=== PATIENT | male | born 1955 | race Caucasian/White ===

== ENCOUNTER 2024-08-27 09:49 | Emergency (ER) | payer MEDICARE, MEDICAID, SELFPAY ==
--- NOTE | ~2024-08-27 | XR_ITS ---
EXAMINATION: XR CHEST CLINICAL INFORMATION: CP COMPARISON: None available. TECHNIQUE: 2 views of the chest were obtained. FINDINGS: Mildly elevated right hemidiaphragm. The cardiac, hilar, and mediastinal contours are normal. Prominent epicardial fat pad. Mildly low lung volumes. On the lateral projection there is increased opacity projecting over the right lung base, possible pneumonia. This is not well seen on the AP projection. There is no pneumothorax or pleural effusion. Surgical screw seen abutting the right inferior glenoid. Degenerative changes of the spine and left greater than right shoulder joints. No soft tissue abnormalities. XR/XR chest 2V IMPRESSION: 1. Increased opacity right lower lobe only seen on lateral projection. Pneumonia is a possibility in the appropriate clinical setting. Unfortunately no priors for comparison. 2. Left lung appears clear. No effusions. Electronically signed by: Robert Clark MD 08/27/2024 10:38 AM EDT
--- NOTE | ~2024-08-27 | CT_ITS ---
EXAMINATION: CT LUMBAR SPINE WITHOUT CONTRAST CLINICAL INFORMATION: Fall, back pain. COMPARISON: None available. TECHNIQUE: Spiral CT imaging of the lumbar spine performed in axial plane without contrast. Multiplanar reformatted images were constructed from the axial data set. This CT examination was performed using dose optimization techniques as appropriate, variously including the following: *Automated exposure control *Adjustment of mA and/or kV according to patient size (this includes techniques or standardized protocols for targeted exams where dose is matched to indication/reason for exam; i.e. extremities or head) *Use of iterative reconstruction technique FINDINGS: There is no scoliosis. There is a normal lordosis. There is no malalignment or subluxation. There is a mild superior endplate compression deformity of T12, chronic in appearance. There is no additional compression fracture, acute fracture, or suspicious bone lesion. There is a hemangioma in the left aspect of L3. Mild multilevel disc degeneration present. Normal facet alignment bilaterally. Posterior elements intact. Mild multilevel degenerative facet changes most notable L3-S1. No large disc herniation or evidence of central canal stenosis. The sacrum is intact. The SI joints appear normal. Mild aortic vascular calcifications without aneurysm. Imaged retroperitoneal soft tissues appear normal. CT/CT lumbar spine wo IV con IMPRESSION: 1. No acute finding of the lumbar spine. 2. There is a chronic appearing mild superior endplate T12 compression fracture. 3. There is mild lumbar spondylosis. Electronically signed by: Robert Clark MD 08/27/2024 02:53 PM EDT
--- NOTE | ~2024-08-27 | CT_ITS ---
EXAMINATION: CT CHEST WITHOUT CONTRAST CT THORACIC SPINE WITHOUT CONTRAST. CLINICAL INFORMATION: Fall, back pain. Chest pain. COMPARISON: None available. Correlation with chest x-ray earlier same day. TECHNIQUE: Multidetector volumetric CT imaging of the chest and thoracic spine was performed without contrast. Axial lung MIP volume rendering provided. Sagittal and coronal reformatted images were obtained. This CT examination was performed using dose optimization techniques as appropriate, variously including the following: *Automated exposure control *Adjustment of mA and/or kV according to patient size (this includes techniques or standardized protocols for targeted exams where dose is matched to indication/reason for exam; i.e. extremities or head) *Use of iterative reconstruction technique FINDINGS: LUNGS: The lungs demonstrate diffuse small airway thickening most notable in the mid and lower lungs bilaterally. There are groundglass changes in both lower lobes, possibly hypoventilatory/atelectasis. Other etiologies not excluded. There is no effusion or pneumothorax. There is no suspicious pulmonary nodule. MEDIASTINUM: There is mild cardiomegaly. There is no pericardial effusion. Mildly patulous esophagus. Aorta and main pulmonary artery appear normal. Thyroid appears normal. No adenopathy or mass. There is no pneumothorax. CORONARY ARTERY CALCIFICATION: Mild, most notable in the LAD. PLEURA: There is no pleural effusion. No pleural mass or thickening. AXILLA/CHEST WALL: No lymphadenopathy. Mild male gynecomastia bilaterally. UPPER ABDOMEN: Fatty infiltration of the liver which is somewhat geographic. Remainder the imaged upper abdominal contents are normal. OSSEOUS STRUCTURES/THORACIC SPINE: There is a minimal levoconvex scoliosis, possibly positional. There is a normal thoracic kyphosis. There is a mild superior endplate compression deformity of T5, T9, T10, T11, and T12. The T5 and T9 fractures are chronic. There is mild perivertebral stranding surrounding T10, and T11, suggesting possible acute fractures. The T12 fracture appears chronic. There is minimal retropulsion of the superior endplate of T12 into the central canal without central canal narrowing. No additional retropulsion of bone. No fractures of the posterior elements. No evidence of central canal stenosis. There is a retracted screw within an osseous fragment anterior to the inferior right glenoid, with a screw tract within the inferior glenoid itself. This may be a chronic hardware failure. Moderate degenerative changes left shoulder joint and mild changes right shoulder joint. There is an acute fracture with mild displacement of the right lateral eighth and ninth ribs. There are no left rib fractures. Sternum is intact. CT/CT thoracic spine wo IV con IMPRESSION: 1. Acute fractures of the right lateral 8th and 9th ribs. 2. Age-indeterminate, possibly acute mild superior endplate compression fractures of T10 and T11. 3. Chronic superior endplate compression deformities of T5, T9, and T12. 4. There is a retracted displaced screw anterior to the right inferior glenoid with an empty screw tract in the inferior glenoid itself. Hardware failure suspected. 5. Lungs demonstrate diffuse mild small airway thickening, most notable in the mid and lower lungs bilaterally. There are associated lower lobe groundglass changes, possibly hypoventilatory or infectious/inflammatory. No effusions. No pneumothorax. 6. There is mild cardiomegaly. 7. There is mild fatty infiltration of the liver. Electronically signed by: Robert Clark MD 08/27/2024 03:14 PM EDT
--- NOTE | 2024-08-27 09:53 | ECG_ITS ---
Test Reason : CHEST PAIN Blood Pressure : */* mmHG Vent. Rate : 77 BPM Atrial Rate : 77 BPM P-R Int : 182 ms QRS Dur : 78 ms QT Int : 350 ms P-R-T Axes : 68 13 37 degrees QTcB Int : 396 ms Normal sinus rhythm Normal ECG No previous ECGs available Referred By: Generic ED Physician Electronically Signed By: PÉREZ LAMBERT
[2024-08-27 10:21] LABS: MANUAL DIFF FLAG NO
[2024-08-27 10:23] LABS: Basophils Absolute Auto 0.1 X10*3/uL (0.0-0.2); Basophils Percent Auto 0.5 % (0-2); Eosinophils Absolute Auto 0.2 X10*3/uL (0.0-0.4); Eosinophils Percent Auto 2.4 % (0-4); Hemoglobin 16.2 g/dl (14.0-18.0); Imm Gran Abs Auto 0.02 X10*3/uL (0.00-0.03); Imm Gran Pct Auto 0.2 % (0.0-0.4); Lymphocytes Absolute Auto 2.5 X10*3/uL (1.2-4.9); Lymphocytes Percent Auto 24.9 % (20-40); Mean Corpuscular HGB Conc 33.8 g/dl (31.0-36.0); Mean Corpuscular Hemoglobin 29.6 pg (27.0-33.0); Mean Corpuscular Volume 87.8 fL (80.0-98.0); Mean Platelet Volume 9.9 fL (9.4-12.4); Monocytes Absolute Auto 0.9 X10*3/uL (0.1-1.2); Monocytes Percent Auto 9.3 % (2-11); Neutrophils Absolute Auto 6.3 x10*3/uL (2.0-8.3); Neutrophils Percent Auto 62.7 % (45-73); Platelet Count 504 X10*3/uL (160-400); Red Blood Count 5.47 X10*6/uL (4.60-5.80); Red Cell Distribution Width 13.6 % (11.0-16.0); White Blood Count 10.1 X10*3/uL (4.8-10.8)
[2024-08-27 10:28] VITALS: BP 155/68; PULSE 68; RESP 18; TEMP 36.1; BMI 24.8
[2024-08-27 10:29] LABS: Prothrombin Time 11.3 SEC (10.9-12.4)
[2024-08-27 10:31] VITALS: BP 155/68; PULSE 68; RESP 18; TEMP 36.1
[2024-08-27 10:31] LABS: Partial Thromboplastin Time 30.8 SEC (26.0-36.8)
[2024-08-27 10:38] LABS: Anion Gap 13 (12-20); Blood Urea Nitrogen 12 mg/dL (9-16); Calcium 9.8 mg/dL (8.4-10.2); Carbon Dioxide 28 mmol/L (22-29); Chloride 107 mmol/L (96-108); Creatinine Clr Calc Pharmacy 55.7; Estimated Glomerular Filt Rate > 60; Glucose Random 106 mg/dL (60-115); Magnesium 2.1 mg/dL (1.6-2.6); Potassium 4.6 mmol/L (3.3-5.1); Sodium 143 mmol/L (135-145)
[2024-08-27 10:44] LABS: B Type Natriuretic Peptide < 10 pg/mL (<100)
[2024-08-27 11:28] LABS: Influenza A PCR NEGATIVE (Negative); Influenza B PCR NEGATIVE (Negative); Resp Syncy Virus RNA Qual PCR NEGATIVE (Negative); SARS COV2 PCR INHOUSE NEGATIVE (Negative)
[2024-08-27] MEDS: Ketorolac Tromethamine 30 MG/ML VIAL IM (11:59)
--- OUTSIDE RECORDS SUMMARY | 2024-08-27 13:23 | XMS_ITS | Clinical Summary ---
Author Organization [facility] Address [address] [place] [address] Phone Care Team Providers Care Human Resources Psychologist Name Role Phone Physician, No Pcp Primary Care Provider Unavaila ble Allergies No known active allergies Encounters Date Type Department Care Team Description 08/26/2024 5:59 PM EDT - 08/26/2024 10:38 PM EDT Emergency [facility] Emergency [address] [place] [address] Discharge Disposition: Home or Self Care from Last 3 Months Medical History Medical History Date Comments Diabetes mellitus ([facility]) Seizures ([facility]) Social History Tobacco Use Types Packs/Day Years Used Date Smoking Tobacco: Never Assessed Sex and Gender Information Value Date Recorded Sex Assigned at Not on file Legal Sex Male 6:14 PM EST Gender Identity Not on file Sexual Orientation Not on file Obstetrics History Last Filed Vital Signs Vital Sign Reading Time Taken Comments Blood Pressure 150/100 08/26/2024 8:38 PM EDT Pulse 72 08/26/2024 8:38 PM EDT Temperature 36.7 ??C (98.1 ??F) 08/26/2024 8:38 PM ED T Respiratory Rate 16 08/26/2024 8:38 PM EDT Oxygen Saturation 96% 08/26/2024 8:38 PM EDT Inhaled Oxygen Concentration - - Weight 63.5 kg (140 lb) 08/26/2024 6:04 PM EDT Height 160 cm (5' 3 ) 08/26/2024 6:04 PM EDT Body Mass Index 24.8 08/26/2024 6:04 PM EDT Plan of Treatment Health Maintenance Due Date Last Done Comments RSV Immunization Patients 60+ Years Old (1 - Risk 60-74 years 1-dose series) 2016 Abdominal Aortic Aneurysm (AAA) Screen 05/19/2022 Colorectal Cancer Screening: Colonoscopy 05/19/2022 Falls Risk Assessment 05/19/2022 Medicare Annual Wellness Visit 05/19/2022 Social Influencers of Health Screening 05/19/2022 COVID-19 Vaccine (3 - 2023- season) 2024 11/02/2020, 10/05/2020 Influenza Vaccine (#1) 2024 , 09/12/2022, 05/19/2021, Additional history exists Depression Screening 12/08/2024 12/09/2023 Hypertension/CHF/CAD Annual BMP Blood Test 12/08/2024 12/09/2023 Pneumococcal Vaccine: 50+ Years (3 of 3 - PCV20 or PCV21) 11/08/2026 11/08/2021, 08/16/2015 Cholesterol Screening (Lipid Panel) 12/08/2028 12/09/2023, 12/09/2023 DTaP,Tdap,and Td Vaccines (5 - Td or Tdap) 11/02/2031 11/01/2021, 10/13/2019, 04/14/2018, Additional history exists Hepatitis C Screening Completed 01/05/2021 Zoster Vaccines Completed 06/22/2024, 08/2020, 07/10/2019 HIB Vaccines Aged Out No longer eligi ble based on patient's age to complete this topic HPV Vaccines Aged Out No longer eligi ble based on patient's age to complete this topic Hepatitis A Vaccines Aged Out No long er eligible based on patient's age to complete this topic Hepatitis B Vaccines Aged Out No long er eligible based on patient's age to complete this topic IPV Vaccines Aged Out No longer eligi ble based on patient's age to complete this topic MMR Vaccines Aged Out No longer eligi ble based on patient's age to complete this topic Meningococcal ACWY Vaccine Aged Out N o longer eligible based on patient's age to complete this topic Meningococcal B Vacine Aged Out No lo nger eligible based on patient's age to complete this topic RSV Immunization Patients Under 20 months Aged Out No longer eligible based on patient's age to complete this topic Varicella Vaccines Aged Out No longer eligible based on patient's age to complete this topic Procedures Procedure Name Priority Date/Time Associated Diagnosis Comments XR RIBS W CHEST 3+ VIEWS RIGHT STAT 08/26/2024 6:32 PM EDT from Last 3 Months Results * XR Ribs w Chest 3+ Views Right (08/26/2024 6:32 PM EDT) Anatomical Region Laterality Modality Body Right Radiographic Francesca ging 08/27/2024 8:08 AM EDT Impressions 08/27/2024 8:11 AM EDT Acute minimally displaced fracture of the right anterolateral 8th rib. -------- FINAL REPORT -------- Dictated By: Alex Mahoney Dictated Date: 08/27/2024 08:08 ET Assigned Physician: Alex Mahoney Reviewed and Electronically Signed By: Alex Mahoney Signed Date: 08/27/2024 08:11 ET Workstation ID: [id number] Transcribed By: Self Edit Transcribed Date: 08/27/2024 08:08 ET Narrative 08/27/2024 8:11 AM EDT PROCEDURE: Chest radiograph and dedicated views of the right ribs. HISTORY: pain. COMPARISON: 08/08/2022. FINDINGS: Lungs are clear. ??No pneumothorax, pleural effusion, or pulmonary edema. ??Normal cardiomediastinal contours. ??There is an acute minimally displaced fracture of the right anterolateral 8th rib. ??Bony irregularity and an orthopedic screw along the inferior right glenoid. Procedure Note Alex Mahoney MD - 08/27/2024 PROCEDURE: Chest radiograph and dedicated views of the right ribs. HISTORY: pain. COMPARISON: 08/08/2022. FINDINGS: Lungs are clear. No pneumothorax, pleural effusion, or pulmonary edema.Normal cardiomediastinal contours. There is an acute minimally displacedfracture of the right anterolateral 8th rib. Bony irregularity and anorthopedic screw along the inferior right glenoid. IMPRESSION: Acute minimally displaced fracture of the right anterolateral 8th rib. -------- FINAL REPORT -------- Dictated By: Alxe Mahoney Dictated Date: 08/27/2024 08:08 ET Assigned Physician: Alex Mahoney Reviewed and Electronically Signed By: Alex Mahoney Signed Date: 08/27/2024 08:11 ET Workstation ID: [id number] Transcribed By: Self Edit Transcribed Date: 08/27/2024 08:08 ET us Marcos Norman DO IMG XR PROCEDURES Final Result from Last 3 Months Insurance [place] MEDICARE ADVANTAGE Advance Directives Documents on File Type Date Recorded Patient Emt/Dispatcher Expl anation Health Care Decision (hx) 08/19/2019 AD CARRERA DIRECTIVE Health Care Decision (hx) 08/19/2019 AD CARRERA DIRECTIVE Health Care Decision (hx) 08/19/2019 AD CARRERA DIRECTIVE Health Care Decision (hx) 08/19/2019 AD CARRERA DIRECTIVE Health Care Decision (hx) 08/19/2019 AD CARRERA DIRECTIVE Health Care Decision (hx) 08/19/2019 AD CARRERA DIRECTIVE Health Care Decision (hx) 08/19/2019 AD CARRERA DIRECTIVE Health Care Decision (hx) 08/19/2019 AD CARRERA DIRECTIVE Health Care Decision (hx) 08/19/2019 AD CARRERA DIRECTIVE Health Care Decision (hx) 08/19/2019 AD CARRERA DIRECTIVE Health Care Decision (hx) 08/19/2019 AD CARRERA DIRECTIVE Health Care Decision (hx) 08/19/2019 AD CARRERA DIRECTIVE Health Care Decision (hx) 08/19/2019 AD CARRERA DIRECTIVE Health Care Decision (hx) 08/19/2019 AD CARRERA DIRECTIVE Health Care Decision (hx) 08/19/2019 AD CARRERA DIRECTIVE Health Care Decision (hx) 08/19/2019 AD CARRERA DIRECTIVE Health Care Decision (hx) 08/19/2019 AD CARRERA DIRECTIVE Health Care Decision (hx) 08/19/2019 AD CARRERA DIRECTIVE Health Care Decision (hx) 08/19/2019 AD CARRERA DIRECTIVE Health Care Decision (hx) 08/19/2019 AD CARRERA DIRECTIVE Health Care Decision (hx) 08/19/2019 AD CARRERA DIRECTIVE Health Care Decision (hx) 08/19/2019 AD CARRERA DIRECTIVE Health Care Decision (hx) 08/19/2019 AD CARRERA DIRECTIVE Health Care Decision (hx) 08/19/2019 AD CARRERA DIRECTIVE Health Care Decision (hx) 08/19/2019 AD CARRERA DIRECTIVE Health Care Decision (hx) 08/19/2019 AD CARRERA DIRECTIVE Health Care Decision (hx) 08/19/2019 AD CARRERA DIRECTIVE Health Care Decision (hx) 08/19/2019 AD CARRERA DIRECTIVE Health Care Decision (hx) 08/19/2019 AD CARRERA DIRECTIVE Health Care Decision (hx) 08/19/2019 AD CARRERA DIRECTIVE Health Care Decision (hx) 08/19/2019 AD CARRERA DIRECTIVE Health Care Decision (hx) 08/19/2019 AD CARRERA DIRECTIVE Health Care Decision (hx) 08/19/2019 AD CARRERA DIRECTIVE Health Care Decision (hx) 08/19/2019 AD CARRERA DIRECTIVE Health Care Decision (hx) 08/19/2019 AD CARRERA DIRECTIVE Health Care Decision (hx) 08/19/2019 AD CARRERA DIRECTIVE Health Care Decision (hx) 08/19/2019 AD CARRERA DIRECTIVE Health Care Decision (hx) 08/19/2019 AD CARRERA DIRECTIVE Health Care Decision (hx) 08/19/2019 AD CARRERA DIRECTIVE Health Care Decision (hx) 08/19/2019 AD CARRERA DIRECTIVE Health Care Decision (hx) 08/19/2019 AD CARRREA DIRECTIVE Health Care Decision (hx) 08/19/2019 AD CARRERA DIRECTIVE Health Care Decision (hx) 08/19/2019 AD CARRERA DIRECTIVE Health Care Decision (hx) 08/19/2019 AD CARRERA DIRECTIVE Health Care Decision (hx) 08/19/2019 AD CARRERA DIRECTIVE Health Care Decision (hx) 08/19/2019 AD CARRERA DIRECTIVE Health Care Decision (hx) 08/19/2019 AD CARRERA DIRECTIVE Care Teams Human Resources Psychologist Relationship Specialty Start Date End Date Physician, No Pcp PCP - General 08/26/24
--- OUTSIDE RECORDS SUMMARY | 2024-08-27 13:24 | XMS_ITS | Encounter Summary ---
Author Organization [facility] Address [address] [place] [address] Care Team Providers Care Webbing Tacker Name Role Phone Tamiko Marin PA-C Primary Care Provider [phone] Reason for Visit * Reason Comments Correspondence Encounter Details Date Type Department Care Team ([facility] st Contact Info) Description 08/04/2024 Interim Notes [facility] [address] [place] [phone] [facility] [address] [place], [place] [id number] Social History Tobacco Use Types Packs/Day Years Used Date Smoking Tobacco: Former Cigarettes Passive Smoke Exposure: Never Smokeless Tobacco: Former Alcohol Use Standard Drinks/Week Comments No 0 (1 standard drink = 0.6 oz pur e alcohol) never Social Connections Answer Date Recorded Connectedness 1 12/09/2023 Financial Resource Strain Answer Date R ecorded Financial Resource Strain 1 2023 Stress Answer Date Recorded Stress 1 12/09/2023 Physical Activity Answer Date Recorded Physical Activity 0 02/04/2019 Food Insecurity Answer Date Recorded Food 1 12/09/2023 Transportation Needs Answer Date Record ed Transportation 1 12/09/2023 Housing Stability Answer Date Recorded Housing 1 12/09/2023 Safety and Environment Answer Date Amador rded Safety 1 12/09/2023 Utilities Answer Date Recorded Utilities 1 12/09/2023 Employment Answer Date Recorded Stress 0 12/09/2023 Sex and Gender Information Value Date Recorded Sex Assigned at Male 05/13/2017 2:28 PM PST Legal Sex Male 11:36 AM PDT Gender Identity Male 05/13/2017 2:28 PM PST Sexual Orientation Straight 05/13/2017 2: 28 PM PST Occupation Industry Job Start Date Job End Date disabled Not on file Not on file Not on file documented as of this encounter Progress Notes * Krissy Dominguez CMA - 08/04/2024 3:39 PM EST Letter made by provider Called patient to inform them ready for lease picker. Jessy green documented in this encounter Plan of Treatment Upcoming Encounters Date Type Department Care Team (Late st Contact Info) Description 09/23/2024 1:40 PM EDT Office Visit [facility] [place] [phone] Raleigh Rubio DDS [address] [place] [phone] documented as of this encounter Visit Diagnoses Not on filedocumented in this encounter Additional Health Concerns Assessment Noted Time PHQ-9 Depression Total Score: 0 12/09/19 24 1:35 PM PDT documented as of this encounter Care Teams Webbing Tacker Relationship Specialty Start Date End Date Tamiko Marin PA-C [address] [place] [id number] PCP - General Primary Care 06/04/23 documented as of this encounter
--- OUTSIDE RECORDS SUMMARY | 2024-08-27 13:24 | XMS_ITS | Encounter Summary ---
Author Organization [facility] Address [address] [place] [address] Care Team Providers Care Bearing Machine Operator Name Role Phone Tamiko Marin PA-C Primary Care Provider [phone]- [phone] Reason for Referral * Home Health Services (Routine) - Closed Specialty Diagnoses / Procedures Referred By Yessenia darnell Referred To Contact Diagnoses Adult behavior problem Seizure (HCC-CMS) Cerebrovascular disease Unsteady gait when walking Milady Laura MA [address] [place] [address] Phone: tel: fax: OTHER Referral ID Status Reason Start Date Expiration Date V isits Requested Visits Authorized [id number] Closed Specialty Services Required 07/19/2022 07/19/2023 1 1 Comments Pt wants to tranfers to [facility] care solutions, Encounter Details Date Type Department Care Team (Late st Contact Info) Description 07/19/2022 Interim Notes [facility] [address] [phone] Milady Laura [address] [address] Adult behavior problem (Primary Dx); Seizure (HCC-CMS); Cerebrovascular disease; Unsteady gait when walking Social History Tobacco Use Types Packs/Day Years Used Date Smoking Tobacco: Former Cigarettes Smokeless Tobacco: Former Alcohol Use Standard Drinks/Week Comments No 0 (1 standard drink = 0.6 oz pur e alcohol) never Social Connections Answer Date Recorded Social Connections and Isolation 0 02/04/2019 Financial Resource Strain Answer Date R ecorded Financial Resource Strain 0 2018 Stress Answer Date Recorded Stress 0 02/04/2019 Physical Activity Answer Date Recorded Physical Activity 0 02/04/2019 Food Insecurity Answer Date Recorded Food 0 02/04/2019 Transportation Needs Answer Date Record ed Transportation 0 02/04/2019 Housing Stability Answer Date Recorded Housing 0 02/04/2019 Safety and Environment Answer Date Amador rded Safety 0 02/04/2019 Utilities Answer Date Recorded Utilities 0 02/04/2019 Employment Answer Date Recorded Employment 0 02/04/2019 Sex and Gender Information Value Date Recorded Sex Assigned at Male 05/13/2017 2:28 PM PST Legal Sex Male 11:36 AM PDT Gender Identity Male 05/13/2017 2:28 PM PST Sexual Orientation Straight 05/13/2017 2: 28 PM PST Occupation Industry Job Start Date Job End Date disabled Not on file Not on file Not on file documented as of this encounter Plan of Treatment Upcoming Encounters Date Type Department Care Team (Late st Contact Info) Description 09/23/2024 1:40 PM EDT Office Visit [facility] [address] [place] [address] Raleigh Rubio DDS [address] [place] [address] Scheduled Referrals Name Type Priority Associated Diagnoses Orde r Schedule REFERRAL TO HOME HEALTH CARE Referral Routine Adult behavior problem Seizure (HCC-CMS) Cerebrovascular disease Unsteady gait when walking Ordered: 07/19/2022 documented as of this encounter Visit Diagnoses Diagnosis Adult behavior problem- Primary Unspecified disturbance of conduct Seizure (HCC-CMS) Other convulsions Cerebrovascular disease Cerebrovascular disease, unspecified Unsteady gait when walking documented in this encounter Additional Health Concerns Assessment Noted Time PHQ-9 Depression Total Score: 2 09/08/19 22 9:16 AM PDT documented as of this encounter Care Teams Bearing Machine Operator Relationship Specialty Start Date End Date Tamiko Marin PA-C [facility] [place] [address] PCP - General Primary Care 06/04/23 documented as of this encounter
--- OUTSIDE RECORDS SUMMARY | 2024-08-27 13:24 | XMS_ITS | Encounter Summary ---
Author Organization [facility] Address [address] [place] [address] Care Team Providers Care Braille Transcriber Name Role Phone Physician, No Pcp Primary Care Provider Unavaila ble Reason for Visit * Reason Comments Fall Encounter Details Date Type Department Care Team (Late st Contact Info) Description 08/26/2024 5:59 PM EDT - 08/26/2024 10:38 PM EDT Emergency [facility] Emergency [address] [place] [phone] Discharge Disposition: Home or Self Care Social History Tobacco Use Types Packs/Day Years Used Date Smoking Tobacco: Never Assessed Sex and Gender Information Value Date Recorded Sex Assigned at Not on file Legal Sex Male 6:14 PM EST Gender Identity Not on file Sexual Orientation Not on file documented as of this encounter Last Filed Vital Signs Vital Sign Reading [...] Mass Index 24.8 08/26/2024 6:04 PM EDT documented in this encounter Discharge Disposition Disposition Code Departure Means Destination Comment s Home or Self Care [facility]. Pt advised to stay as x ray done . Pt refused to stay . Advised to return with cocnerns documented in this encounter Progress Notes * Adriane Ocampo RN - 08/26/2024 10:32 PM EDT Pts son to the desk and reported he was taking his [facility] to the [facility] as he has been waitingtoo long. Pt advised to stay as his x ray was done here and when he goes in it just needs to be seen by the provider and pt is next to be seen. Pt and son refused to stay * Yeimi Carter RN - 08/26/2024 6:03 PM EDT Pt sts son dog jumped on him and pt fell back landed on rt ribs on counter today. Denies loc. C/o pain rt rib area documented in this encounter Plan of Treatment Not on file documented as of this encounter Procedures Procedure Name Priority Date/Time Associated Diagnosis Comments XR RIBS W CHEST 3+ VIEWS RIGHT STAT 08/26/2024 6:32 PM EDT documented in this encounter Results * XR Ribs w Chest 3+ [...] Signed Date: 08/27/2024 08:11 ET Workstation ID: [id number] Transcribed By: Self Edit Transcribed Date: 08/27/2024 [...] Signed Date: 08/27/2024 08:11 ET Workstation ID: [id number] Transcribed By: Self Edit Transcribed Date: 08/27/2024 08:08 ET us Marcos Norman DO IMG XR PROCEDURES Final Result documented in this encounter Visit Diagnoses Not on filedocumented in this encounter Care Teams Braille Transcriber Relationship Specialty Start Date End Date Physician, No Pcp PCP - General 08/26/24 documented as of this encounter
--- OUTSIDE RECORDS SUMMARY | 2024-08-27 13:24 | XMS_ITS | Clinical Summary ---
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 Wellness Visit 09/29/2021 09/29/2020 Alcohol and Drug Screen 06/17/2024 12/09/19 24, 07/11/2023, 09/12/2022, Additional history exists Depression Annual Screen 06/17/2024 12/09/2023, 03/18 Colonoscopy 10/01/2024 10/01/2014 Colorectal Cancer Screening 10/01/2024 Diabetes Screening 12/08/2024 12/09/2023, 0 12/09/2023, 01/05/2021, Additional history exists Lipid Screening 12/08/2024 12/09/2023, 09/15, 10/14/2015 Imm-Influenza (#1) 2024 05/28/2023, 0 09/12/2022, 05/19/2021, Additional history exists Postponed from 02/16/2024 (Patient postponement) [id number] ( season) 2024 11/02/2020, 10/05/2020 Postponed from 02/16/2024 (Patient postponement) Falls Prevention 03/05/2025 03/05/2024, , 05/19/2021 Hypertension Screening (#1) 07/30/2025 05/13/2017 Tobacco Screening 07/30/2025 07/30/2024 Dental BW 08/01/2025 07/30/2024 Dental Examination 08/01/2025 07/30/2024 Dental Perio Charting 08/01/2025 07/30/2024 Imm-Pneumococcal 65+ (3 of 3 - PCV20 or PCV21) 11/08/2026 11/08/2021, 08/16/2015 Dental FMX/Pano 08/01/2029 07/30/2024 Imm-DTaP/Tdap/Td (5 - Td or Tdap) 11/02/2031 11/01/2021, 10/13/2019, 04/14/2018, Additional history exists Hepatitis C Screening Completed 01/05/2021 Imm-Zoster, Recombinant Completed 06/22/2024, 07/10 Procedures Procedure Name Priority Date/Time Associated Diagnosis Comments DENTAL CASE MANAGEMENT - MOTIVATIONAL INTV Routine 07/30/2024 1:00 PM EST Retained tooth root Dental caries on smooth surface penetrating into pulp Dental caries on smooth surface penetrating into dentin INTRAORAL - COMP SERIES OF RADIOGRAPHIC IMAGES Routine 07/30/2024 1:00 PM EST Retained tooth root Dental caries on smooth surface penetrating into dentin Dental caries on smooth surface penetrating into pulp COMP ORAL EVALUATION - NEW/ESTABLISHED PATIENT Routine 07/30/2024 1:00 PM EST Retained tooth root Dental caries on smooth surface penetrating into pulp Dental caries on smooth surface penetrating into dentin CARIES RISK ASSESSMENT & DOC FINDING HIGH RISK Routine 07/30/2024 1:00 PM EST Retained tooth root Dental caries on smooth surface penetrating into pulp Dental caries on smooth surface penetrating into dentin NUTRITIONAL COUNSELING CONTROL OF DENTAL DISEASE Routine 07/30/2024 1:00 PM EST Retained tooth root Dental caries on smooth surface penetrating into pulp Dental caries on smooth surface penetrating into dentin ORAL HYGIENE INSTRUCTIONS Routine 07/30/2024 1:00 PM EST Retained tooth root Dental caries on smooth surface penetrating into pulp Dental caries on smooth surface penetrating into dentin ORAL CANCER SCREENING Routine 07/30/2024 1:00 PM EST Retained tooth root Dental caries on smooth surface penetrating into pulp Dental caries on smooth surface penetrating into dentin CASE PRESENTATION SUBS DTL & EXTENSIVE TX PLN Routine 07/30/2024 1:00 PM EST Retained tooth root Dental caries on smooth surface penetrating into pulp Dental caries on smooth surface penetrating into dentin 5 O COMPOSITE - WISDOM (NON BILLABLE) Routine 07/30/2024 12:00 AM EST 29 O AMALGAM - WISDOM (NON BILLABLE) Routine 07/30/2024 12:00 AM EST 21 O AMALGAM - WISDOM (NON BILLABLE) Routine 07/30/2024 12:00 AM EST 20 O AMALGAM - WISDOM (NON BILLABLE) Routine 07/30/2024 12:00 AM EST 18 O AMALGAM - WISDOM (NON BILLABLE) Routine 07/30/2024 12:00 AM EST COMPREHENSIVE METABOLIC PANEL Routine 12/09/2023 2:25 PM EDT Hospital discharge follow-up Dizziness LIPID PANEL Routine 12/09/2023 2:25 PM EDT Hospital discharge follow-up Dizziness HEPATITIS C AB W/RFLX HCV RNA, QT, RT PCR Routine 01/05/2021 10:49 AM EDT Functional memory problem Thrombocytopenia (HCC-CMS) Anemia, unspecified type from Last 3 Months or Most Recently Relevant to Health Maintenance Results * LIPID PANEL (12/09/2023 2:25 PM EDT) CHOLESTEROL, TOTAL 100 <200 mg/dL [facility] HDL CHOLESTEROL 47 > OR = 40 mg/dL [facility] TRIGLYCERIDES 79 <150 mg/dL [facility] LDL-CHOLESTEROL 37 99 mg/dL (calc) [facility] Comment: Reference range: <100 Desirable range <100 mg/dL for primary prevention; ?? <70 mg/dL for patients with CHD or diabetic patients with > or = 2 CHD risk factors. LDL-C is now calculated using the Don calculation, which is a validated novel method providing better accuracy than the Friedewald equation in the estimation of LDL-C. Rick SAUNDERS et al. MAIN. 2013;310(19): 7251-5904 (http://education.AOL/faq/KDQ948) CHOL/HDLC RATIO 2.1 <5.0 (calc) [facility] NON-HDL CHOLESTEROL 53 <130 mg/dL (calc) [facility] Comment: For patients with diabetes plus 1 major ASCVD risk factor, treating to a non-HDL-C goal of <100 mg/dL (LDL-C of <70 mg/dL) is considered a therapeutic option. Blood Blood / Unknown 12/09/2023 2 :25 PM EDT 12/09/2023 2:26 PM EDT Narrative [facility] - 12/10/2023 8:11 AM EDT FASTING:NO us Tamiko Marin PA-C LAB - BLOOD DRAW Final Resu lt [facility] [address] [address], [facility] [address] [place] [address] * COMPREHENSIVE METABOLIC PANEL (12/09/2023 2:25 PM EDT) GLUCOSE 98 65 - 139 mg/dL [facility] Comment: ?Non-fasting reference interval UREA NITROGEN (BUN) 14 7 - 25 mg/dL [facility] CREATININE (blood) 0.99 0.70 - 1.35 mg/dL [facility] EGFR 83 > OR = 60 mL/min/1. 73m2 [facility] BUN/CREATININE RATIO SEE NOTE: [facility] Comment: ?? Not Reported: BUN and Creatinine are within ?? reference range. ? SODIUM 141 135 - 146 mmol/L [facility] POTASSIUM 4.6 3.5 - 5.3 mmol/L [facility] CHLORIDE 105 98 - 110 mmol/L [facility] CARBON DIOXIDE 28 20 - 32 mmol/L [facility] CALCIUM 10.3 8.6 - 10.3 mg/dL [facility] PROTEIN, TOTAL 7.5 6.1 - 8.1 g/dL [facility] ALBUMIN 4.9 3.6 - 5.1 g/dL [facility] GLOBULIN 2.6 1.9 - 3.7 g/dL (calc) [facility] ALBUMIN/GLOBULI N RATIO 1.9 1.0 - 2.5 (calc) [facility] BILIRUBIN, TOTAL 0.6 0.2 - 1.2 mg/dL [facility] ALKALINE PHOSPHATASE 37 35 - 144 U/L [facility] AST 28 10 - 35 U/L [facility] ALT 28 9 - 46 U/L [facility] Blood Blood / Unknown 12/09/2023 2 :25 PM EDT 12/09/2023 2:26 PM EDT Narrative [facility] - 12/10/2023 8:11 AM EDT FASTING:NO us Tamiko Marin PA-C LAB - BLOOD DRAW Edited Res ult - Final [facility] [address] [address], [facility] [address] [place] [address] * HEPATITIS C AB W/RFLX HCV RNA, QT, RT PCR (01/05/2021 10:49 AM EDT) HEPATITIS C ANTIBODY NON-REACT GABBY NON-REACT GABBY [facility] SIGNAL TO CUT-OFF 0.01 <1.00 [facility] Comment: HCV antibody was non-reactive. There is no laboratory evidence of HCV infection. In most cases, no further action is required. However, if recent HCV exposure is suspected, a test for HCV RNA (test code 79375) is suggested. For additional information please refer to http://education.Basecamp/faq/UOG38c4 (This link is being provided for informational/ educational purposes only.) Blood Blood / Unknown 01/05/2021 1 0:49 AM EDT 01/05/2021 10:49 AM EDT Patsy Cantu [facility] LAB - BLOOD DRAW Edited Result - Final [facility] [place] [employer] [address] [address], [facility] [address] [address] from Last 3 Months or Most Recently Relevant to Health Maintenance [place] Care Teams Testing Engineer Relationship Specialty Start Date End Date Tamiko Marin PA-C [address] [place] [id number] PCP - General Primary Care 06/04/23
--- OUTSIDE RECORDS SUMMARY | 2024-08-27 13:24 | XMS_ITS | Encounter Summary ---
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 Phone Tamiko Marin PA-C Primary Care Provider Reason for Visit * Reason Comments Dental Hygiene/ Preventive New patient Encounter Details Date Type Department Care Team ([facility] st Contact Info) Description 07/30/2024 1:00 PM EST Office Visit [facility] [address] [place] [phone] [facility]anyil [address] [place], [place] [phone] Retained tooth root (Primary Dx); Dental caries on smooth surface penetrating into pulp; Dental caries on smooth surface penetrating into dentin Social History Tobacco Use Types Packs/Day Years [...] Pulse 74 07/30/2024 1:11 PM EST Temperature - - Respiratory Rate - - Oxygen Saturation - - Inhaled Oxygen Concentration - - Weight - - Height - - Body Mass Index - - documented in this encounter Progress Notes * Renato Alvarez - 08/06/2024 8:40 AM EST Exam - Adult Subjective Raleigh Vergara, 69 year old male, presents alone for NPx exam. Search Marketing Specialist: Yes: Serbian. Chief Complaint Patient presents with Dental Hygiene/ Preventive New patient Objective RMHx: Yes Vitals: Vitals: 07/30/24 1311 BP: (!) 142/92 Pulse: 74 BP Site: Right Wrist BP Position: Sitting BP Cuff Size: Small Adult Pain Score: 0 - No pain Assessment EOE/IOE/Oral Cancer Screen: WNL [place]: Poor Fluoride exposure: toothpaste Home Care: Toothbrush 1 x per day, Floss 0 x per day Plaque: Generalized Moderate Calculus: Localized Moderate Bone Loss: Generalized Moderate and Localized Severe PSR: No, full perio charting complete. Periodontal Screening OHI & Nutrition counseling provided, discussed: Proper brushing technique, Proper flossing technique, Increase brushing to twice a day, Supply more along the gumline, Increase flossing to once perday, How diet impacts caries process, Healthy eating tips Caries Risk Assessment: Auto calculated Risk Score: high risk Dx: K08.3 Retained tooth root (primary encounter diagnosis) K02.63 Dental caries on smooth surface penetrating into pulp K02.62 Dental caries on smooth surface penetrating into dentin Dx Details (Clinical Decision Making): Patient presented in poor oral health needing half of his remaining dentition extracted, due to patient discomfort and the ability to clean remaining teeth better after extraction giving greater accessibility, Dr. Arriola determined extractions should happen first, then prophy after, and then all remaining treatment plan completed after that. Plan Informed Consent/PARQ (Procedure, Alternatives, Risks, Questions): Discussed exam findings and treatment needs, questions answered. Patient confirms informed consent using PARQ, verbalizes understanding of exam findings and treatment plan. Dental procedures in this visit D9450 - CASE PRESENTATION SUBS DTL & EXTENSIVE TX PLN (Completed) Service provider: Renato Alvarez Billing provider: Aparna Arriola DDS [id number] - ORAL CANCER SCREENING (Completed) Service provider: Renato Alvarez Billing provider: Aparna Arriola DDS [id number] - ORAL HYGIENE INSTRUCTIONS (Completed) Service provider: Renato Alvarez Billing provider: Aparna Arriola DDS D1310 - NUTRITIONAL COUNSELING CONTROL OF DENTAL DISEASE (Completed) Service provider: Renato Alvarez Billing provider: Aparna Arriola DDS D0603 - CARIES RISK ASSESSMENT & DOC FINDING HIGH RISK (Completed) Service provider: Renato Alvarez Billing provider: Aparna Arriola DDS D0150 - COMP ORAL EVALUATION - NEW/ESTABLISHED PATIENT (Completed) Service provider: Renato Alvarez Billing provider: Aparna Arriola DDS [id number] - INTRAORAL - COMP SERIES OF RADIOGRAPHIC IMAGES (Completed) Service provider: Renato Alvarez Billing provider: Aparna Arriola DDS [id number] - DENTAL CASE MANAGEMENT - MOTIVATIONAL INTV (Completed) Service provider: Renato Alvarez Billing provider: Aparna Arriola DDS Referrals: No orders of the following type(s) were placed in this encounter: Referral. Rx: No orders of the defined types were placed in this encounter. Behavior: Excellent NV: extractions then prophy. documented in this encounter Miscellaneous Notes * Patient Instructions - Renato Alvarez - 07/30/2024 1:47 PM EST If you are not able to keep your appointment please call 24-48 hours before your appointment to cancel or reschedule. documented in this encounter Plan of Treatment Upcoming Encounters Date Type Department Care Team (Late st Contact Info) Description 09/23/2024 1:40 PM EDT Office Visit [facility] [address] [place] [phone] Vanessa Rubiois, DDS [address] [place] [address] Scheduled Orders Name Type Priority Associated Diagnoses Order Schedule 6 EXTRACTION ERU TOOTH RQR REMV BONE &/SECTN TOOTH Dental Procedures Routine 1 Occurrences starting 07/30/2024 28 EXTRACTION ERU TOOTH RQR REMV BONE &/SECTN TOOTH Dental Procedures Routine 1 Occurrences starting 07/30/2024 10 EXTRACTION ERU TOOTH RQR REMV BONE &/SECTN TOOTH Dental Procedures Routine 1 Occurrences starting 07/30/2024 18 EXTRACTION ERU TOOTH RQR REMV BONE &/SECTN TOOTH Dental Procedures Routine 1 Occurrences starting 07/30/2024 29 M RESIN-BASED COMPOSITE - ONE SURFACE POSTERIOR Dental Procedures Routine 1 Occurrence s starting 07/30/2024 11 D RESIN-BASED COMPOSITE ONE SURFACE ANTERIOR Dental Procedures Routine 1 Occurrences starting 07/30/2024 12,13,14,15,8,9,10, 2,3,4 MAXILLARY PARTIAL DENTURE - RESIN BASE Dental Procedures Routine 1 Occurrences starting 07/30/2024 18,19,22,27,28,30,3 1 MANDIBULAR PARTIAL DENTURE - RESIN BASE Dental Procedures Routine 1 Occurrences starting 07/30/2024 documented as of this encounter Procedures Procedure Name Priority Date/Time Associated Diagnosis Comments ORAL CANCER SCREENING Routine 07/30/2024 1:00 PM EST Retained tooth root Dental caries on smooth surface penetrating into pulp Dental caries on smooth surface penetrating into dentin DENTAL CASE MANAGEMENT - MOTIVATIONAL INTV Routine [...] (NON BILLABLE) Routine 07/30/2024 12:00 AM EST documented in this encounter Visit Diagnoses Diagnosis Retained tooth root- Primary Retained dental root Dental caries on smooth surface penetrating into pulp Dental caries of smooth surface Dental caries on smooth surface penetrating into dentin Dental caries of smooth surface documented in this encounter Additional Health Concerns Assessment Noted Time PHQ-9 Depression Total Score: 0 12/09/19 1:35 PM PDT documented as of this encounter Care Teams Airplane Woodworker Relationship Specialty Start Date End Date Tamiko Marin PA-C [address] [place] [address] PCP - General Primary Care 06/04/23 documented as of this encounter
--- NOTE | 2024-08-27 13:33 | ED_ITS ---
HPI - Chest Pain General Chief Complaint: Chest Pain Stated Complaint: Chest pain Time Seen by Provider: 08/27/24 10:12 History of Present Illness ED Provider: Dr. Rivers HPI narrative: 69 y/o M patient; without significant PMH; presents from home with son after mechanical fall yesterday. The patient was playing with his grandchildren and his granddogs when he fell. He landed with his right side down onto the sharp piece of a dog crate. The two dogs landed on top of him. He immediately had rib pain. He has since had pain with deep breathing. He has been ambulatory since the fall. He denies head injury or LOC. Related Data Previous Rx's ?Medication ?Instructions ?Recorded acetaminophen 325 mg tablet 650 mg (2 x 325 mg) PO Q6H PRN 08/27/24 (Tylenol) pain 30 days #30 tabs ibuprofen 400 mg tablet 400 mg PO Q8H PRN pain 30 days #30 08/27/24 tabs lidocaine 5 % topical patch 1 patch topical DAILY PRN pain 30 08/27/24 (Lidoderm) days #30 ea Allergies Allergy/AdvReac Type Severity Reaction Status Date / Time No Known Allergies Allergy Verified 08/27/24 10:30 Review of Systems 2 Review of Systems: Yes all other systems are reviewed and are negative Neurologic: Denies Sensory deficit (Neuro) PMFSH Past Medical History Attestation statement: The following information was validated with the patient. Source: unable to obtain Social History Social History Smoked in Last 30 Days: No Use of substances other than those prescribed or required for medical reasons: No Advance Directives: No Advance Directives Information Provided: Yes Do you have a plan to hurt others: No Plan Physical Exam 2 Vital Signs: Vital Signs: Last Vital Signs Temp 97 F 08/27/24 14:44 Pulse 66 08/27/24 14:44 Resp 18 08/27/24 14:44 BP 162/72 H 08/27/24 14:44 Pulse Ox 98 08/27/24 14:44 O2 Del Method Room Air 08/27/24 14:44 BMI result Body Mass Index 24.8 Patient is afebrile and hemodynamically stable Const: General: cooperative Orientation/consciousness: patient oriented x3 HEENT: Head: Yes normal to inspection and Yes atraumatic Eyes: General: appearance normal, both eyes and all related structures P upils: Equal, round and reactive pupils present EOM: EOMs intact bilaterally Neck: Neck: Yes normal visual inspection, Yes full ROM, Yes supple and No tender Chest: Other: Tenderness to right lateral chest wall with associated area of ecchymosis Chest palpation & inspection: normal inspection of the chest Resp: Effort & Inspection: normal respiratory effort, able to speak in complete sentences, no cough and no respiratory distress Auscultation: clear to auscultation bilaterally Cardio: Rate: regular rate Rhythm: regular rhythm Peripheral pulses: P eripheral pulses 2+ throughout GI: Inspection: Yes normal to inspection, No Abdominal wall edema and No distended Palpation (GI): Soft to palpation, not firm, nontender, no guarding and not rigid Auscultation: normal bowel sounds Neuro: General: patient oriented x3 and gait normal Cranial nerves: Yes Equal, round and reactive pupils present Motor exam (neuro): 5/5 motor strength present throughout Sensory Exam: No Sensory deficit (Neuro) Course Course Course Narrative: Patient is afebrile and hemodynamically stable. Ordered for work up by triage nurse which I have reviewed. Labs: Mild thrombocytopenia COVID/Flu/RSV negative. CXR with increased opacity over the right lower lobe seen on lateral projection. Query if this is lung contusion. Ordered for CT Chest/Thoracic and Lumbar Spine. Patient provided toradol for pain control. Reevaluation(s) Reevaluation #1: CT scans reviewed. Acute fx right 8th and 9th ribs, possibly acute fx superior end-plate compression fx T10 and T11. Patient informed about incidental hardware failure in right inferior glenoid. Patient is ambulatory without difficulty. Instructed in the use of incentive spirometer. Tylenol, ibuprofen, lidoderm patches for pain control. Plan: Discharge to home with PCP and orthopedic follow up Return precautions given Medications Administered Discontinued Medications Generic Name Dose Route Start Last Admin Trade Name Freq PRN Reason Stop Dose Admin Ketorolac Tromethamine 30 mg 08/27/24 11:49 08/27/24 11:59 Ketorolac Tromethamine 30 Mg/Ml Vial IM 08/27/24 11:50 30 mg ONCE ONE Administration Medical Decision Making Lab Data 08/27/24 10:16 08/27/24 10:16 Labs: Lab Results 08/27/24 08/27/24 Range/Units 10:16 10:42 WBC 10.1 (4.8-10.8) X10*3/uL RBC 5.47 (4.60-5.80) X10*6/uL Hgb 16.2 (14.0-18.0) g/dl Hct 48.0 (42.0-52.0) % MCV 87.8 (80.0-98.0) fL MCH 29.6 (27.0-33.0) pg MCHC 33.8 (31.0-36.0) g/dl RDW 13.6 (11.0-16.0) % Plt Count 504 H (160-400) X10*3/uL MPV 9.9 (9.4-12.4) fL Immature Gran % (Auto) 0.2 (0.0-0.4) % Neut % (Auto) 62.7 (45-73) % Lymph % (Auto) 24.9 (20-40) % Mccone % (Auto) 9.3 (2-11) % Eos % (Auto) 2.4 (0-4) % Baso % (Auto) 0.5 (0-2) % Lymph # (Auto) 2.5 (1.2-4.9) X10*3/uL Mccone # (Auto) 0.9 (0.1-1.2) X10*3/uL Eos # (Auto) 0.2 (0.0-0.4) X10*3/uL Baso # (Auto) 0.1 (0.0-0.2) X10*3/uL Abs Immat Gran (auto) 0.02 (0.00-0.03) X10*3/uL Absolute Neuts (auto) 6.3 (2.0-8.3) x10*3/uL Absolute Nucleated RBC 0.000 (0.0-0.012) X10*3/uL Nucleated RBC % (auto) 0.0 (0.0-0.2) /100WBC PT 11.3 (10.9-12.4) SEC INR 1.0 (0.9-1.1) APTT 30.8 (26.0-36.8) SEC Sodium 143 (135-145) mmol/L Potassium 4.6 (3.3-5.1) mmol/L Chloride 107 (96-108) mmol/L Carbon Dioxide 28 (22-29) mmol/L Anion Gap 13 (12-20) BUN 12 (9-16) mg/dL Creatinine 0.98 (0.5-1.4) mg/dL Estim Creat Clear Calc 55.7 Estimated GFR > 60 Random Glucose 106 (60-115) mg/dL Calcium 9.8 (8.4-10.2) mg/dL Magnesium 2.1 (1.6-2.6) mg/dL B-Natriuretic Peptide < 10 (<100) pg/mL Influenza Type A (PCR) NEGATIVE (Negative) Influenza Type B (PCR) NEGATIVE (Negative) RSV RNA Qual (PCR) NEGATIVE (Negative) SARS-CoV-2 RNA (RT-PCR) NEGATIVE (Negative) Independent Interpretation I performed an independent interpretation of an: EKG Interpretation: NSR 77BPM without ischemic changes Radiology Impression Discussion of test interpretation with radiology: I have reviewed the radiologist's reading. Radiologist Impression: EXAMINATION: XR CHEST CLINICAL INFORMATION: CP COMPARISON: None available. TECHNIQUE: 2 views of the chest were obtained. FINDINGS: Mildly elevated right hemidiaphragm. The cardiac, hilar, and mediastinal contours are normal. Prominent epicardial fat pad. Mildly low lung volumes. On the lateral projection there is increased opacity projecting over the right lung base, possible pneumonia. This is not well seen on the AP projection. There is no pneumothorax or pleural effusion. Surgical screw seen abutting the right inferior glenoid. Degenerative changes of the spine and left greater than right shoulder joints. No soft tissue abnormalities. XR/XR chest 2V IMPRESSION: 1. Increased opacity right lower lobe only seen on lateral projection. Pneumonia is a possibility in the appropriate clinical setting. Unfortunately no priors for comparison. 2. Left lung appears clear. No effusions. Electronically signed by: Robert Clark MD 08/27/2024 10:38 AM EDT Report Number: [id number]: Total DLP = 1142.83 mGy-cm EXAMINATION: CT CHEST WITHOUT CONTRAST CT THORACIC SPINE WITHOUT CONTRAST. CLINICAL INFORMATION: Fall, back pain. Chest pain. COMPARISON: None available. Correlation with chest x-ray earlier same day. TECHNIQUE: Multidetector volumetric CT imaging of the chest and thoracic spine was performed without contrast. Axial lung MIP volume rendering provided. Sagittal and coronal reformatted images were obtained. This CT examination was performed using dose optimization techniques as appropriate, variously including the following: *Automated exposure control *Adjustment of mA and/or kV according to patient size (this includes techniques or standardized protocols for targeted exams where dose is matched to indication/reason for exam; i.e. extremities or head) *Use of iterative reconstruction technique FINDINGS: LUNGS: The lungs demonstrate diffuse small airway thickening most notable in the mid and lower lungs bilaterally. There are groundglass changes in both lower lobes, possibly hypoventilatory/atelectasis. Other etiologies not excluded. There is no effusion or pneumothorax. There is no suspicious pulmonary nodule. MEDIASTINUM: There is mild cardiomegaly. There is no pericardial effusion. Mildly patulous esophagus. Aorta and main pulmonary artery appear normal. Thyroid appears normal. No adenopathy or mass. There is no pneumothorax. CORONARY ARTERY CALCIFICATION: Mild, most notable in the LAD. PLEURA: There is no pleural effusion. No pleural mass or thickening. AXILLA/CHEST WALL: No lymphadenopathy. Mild male gynecomastia bilaterally. UPPER ABDOMEN: Fatty infiltration of the liver which is somewhat geographic. Remainder the imaged upper abdominal contents are normal. OSSEOUS STRUCTURES/THORACIC SPINE: There is a minimal levoconvex scoliosis, possibly positional. There is a normal thoracic kyphosis. There is a mild superior endplate compression deformity of T5, T9, T10, T11, and T12. The T5 and T9 fractures are chronic. There is mild perivertebral stranding surrounding T10, and T11, suggesting possible acute fractures. The T12 fracture appears chronic. There is minimal retropulsion of the superior endplate of T12 into the central canal without central canal narrowing. No additional retropulsion of bone. No fractures of the posterior elements. No evidence of central canal stenosis. There is a retracted screw within an osseous fragment anterior to the inferior right glenoid, with a screw tract within the inferior glenoid itself. This may be a chronic hardware failure. Moderate degenerative changes left shoulder joint and mild changes right shoulder joint. There is an acute fracture with mild displacement of the right lateral eighth and ninth ribs. There are no left rib fractures. Sternum is intact. CT/CT chest wo IV con IMPRESSION: 1. Acute fractures of the right lateral 8th and 9th ribs. 2. Age-indeterminate, possibly acute mild superior endplate compression fractures of T10 and T11. 3. Chronic superior endplate compression deformities of T5, T9, and T12. 4. There is a retracted displaced screw anterior to the right inferior glenoid with an empty screw tract in the inferior glenoid itself. Hardware failure suspected. 5. Lungs demonstrate diffuse mild small airway thickening, most notable in the mid and lower lungs bilaterally. There are associated lower lobe groundglass changes, possibly hypoventilatory or infectious/inflammatory. No effusions. No pneumothorax. 6. There is mild cardiomegaly. 7. There is mild fatty infiltration of the liver. Electronically signed by: Robert Clark MD 08/27/2024 03:14 PM EDT RP Discharge Plan Discharge Clinical Impression: Closed rib fracture, Compression fracture of thoracic vertebra Patient Disposition: Home, Self-Care Instructions: Rib Fracture (ED), Vertebral Compression Fracture (ED) Additional Instructions: 1. Acute fractures of the right lateral 8th and 9th ribs. 2. Age-indeterminate, possibly acute mild superior endplate compression fractures of T10 and T11. 3. Chronic superior endplate compression deformities of T5, T9, and T12. 4. There is a retracted displaced screw anterior to the right inferior glenoid with an empty screw tract in the inferior glenoid itself. Hardware failure suspected. Prescriptions: New ibuprofen 400 mg tablet 400 mg PO Q8H PRN (Reason: pain) 30 Days Qty: 30 0RF acetaminophen [Tylenol] 325 mg tablet 650 mg PO Q6H PRN (Reason: pain) 30 Days Qty: 30 0RF lidocaine [Lidoderm] 5 % adhesive patch,medicated 1 patch topical DAILY PRN (Reason: pain) 30 Days Qty: 30 0RF Rx Instructions: leave on most painful area for up to 12 hrs Referrals: Hank Mathews MD [Physician] - 2 days (Please call this number to follow up with orthopedics to discuss your recent emergency department visit. ) Print Language: Irish
[2024-08-27 14:44] VITALS: BP 162/72; PULSE 66; RESP 18; TEMP 36.1; O2SAT 98
[2024-08-27 15:50] VITALS: BP 159/69; PULSE 58; RESP 18; TEMP 36.1; O2SAT 98
== END 2024-08-27 15:52 | disposition home or self-care (01) ==
PROVIDERS: Emergency Provider Emergency Medicine
DX: S22.31XA Fracture of one rib, right side, initial encounter for closed fracture (principal); R07.89 Other chest pain; D69.6 Thrombocytopenia, unspecified; M48.54XA Collapsed vertebra, not elsewhere classified, thoracic region, initial encounter for fracture; R07.81 Pleurodynia; N62 Hypertrophy of breast; R06.02 Shortness of breath; W18.31XA Fall on same level due to stepping on an object, initial encounter; Y93.01 Activity, walking, marching and hiking; Y92.009 Unspecified place in unspecified non-institutional (private) residence as the place of occurrence of the external cause; Y99.8 Other external cause status; Z91.81 History of falling; Z03.818 Encounter for observation for suspected exposure to other biological agents ruled out; Z79.899 Other long term (current) drug therapy
CPT/HCPCS: 0241U; 71046; 71250; 72128; 72131; 80048; 83735; 83880; 85025; 85610; 85730; 93005; 96374; 99284; 99285; J1885

== ENCOUNTER → 2024-08-27 09:53 | Outpatient (BNV) | payer MEDICARE, MEDICAID, SELFPAY | PROVIDERS: Emergency Provider Emergency Medicine; Visit Provider Internal Medicine | DX: R07.9 Chest pain, unspecified (principal) | CPT/HCPCS: 93010 ==

== ENCOUNTER → 2024-08-27 09:54 | Outpatient (BNV) | payer MEDICARE, MEDICAID, SELFPAY | PROVIDERS: Emergency Provider Emergency Medicine; Visit Provider Radiology Diagnostic Radiology | DX: S22.41XA Multiple fractures of ribs, right side, initial encounter for closed fracture (principal); M48.54XA Collapsed vertebra, not elsewhere classified, thoracic region, initial encounter for fracture; M54.50 Low back pain, unspecified; R91.8 Other nonspecific abnormal finding of lung field; W19.XXXA Unspecified fall, initial encounter | CPT/HCPCS: 71046; 71250; 72128; 72131 ==